=== PATIENT | female | born 1935 | race Caucasian/White ===

== ENCOUNTER 2019-12-11 10:53 | Observation (INO) ==
[2019-12-11 11:34] LABS: Hematocrit 35.1 % (35.3-44.9); Hemoglobin 10.2 g/dL (11.5-15.4); Mean Corpuscular HGB Conc 29.1 g/dL (31.6-35.5); Mean Corpuscular Hemoglobin 23.1 pg (28.0-33.3); Mean Corpuscular Volume 79.4 fL (83.0-100.0); Mean Platelet Volume 10.8 fL (9.4-12.4); Platelet Count 143 K/mcL (140-400); Red Blood Count 4.42 M/mcL (3.82-4.97); Red Cell Distribution Width 19.9 % (11.5-14.5); White Blood Count 5.8 K/mcL (4.3-11.1)
[2019-12-11 11:40] LABS: INR 1.9; Prothrombin Time 21.8 Seconds (9.4-12.1)
[2019-12-11 11:42] LABS: Activated Partial Thrombo Time 38.1 Seconds (26.0-36.0)
[2019-12-11 12:01] LABS: Troponin I < 0.03 ng/mL (< 0.04)
[2019-12-11 12:04] LABS: Bilirubin,Urine Negative (Negative); Blood,Urine Moderate (Negative); Clarity,Urine Clear (Clear); Color,Urine Yellow (Yellow); Glucose,Urine (UA) Normal (Normal); Ketones,Urine Negative (Negative); Leukocyte Esterase,Urine Small (Negative); Nitrite,Urine Negative (Negative); Protein,Urine Negative (Neg-Trace); Specific Gravity,Urine 1.022 (1.010-1.025); Urobilinogen,Urine Normal (Normal)
[2019-12-11 12:04] LABS: BUN/Creatinine Ratio 25 (6-26); Blood Urea Nitrogen 22 mg/dL (8-23); Carbon Dioxide 24 mEq/L (23-29); Chloride 106 mEq/L (98-107); Glucose 124 mg/dL (70-105); Osmolality,Calculated 293 (280-300); Potassium 4.3 mEq/L (3.5-5.1); Sodium 139 mEq/L (136-145); eGFR For African Americans > 60 (> 60); eGFR For Non-African Americans > 60 (> 60)
[2019-12-11 12:07] LABS: Bacteria,Urine None Seen per hpf (None-Few); Hyaline Casts,Urine None Seen per lpf (None-Few); Squamous Epithelial Cell,Urine Many per lpf (None-Few); WBC,Urine 0-3 per hpf (0-3)
[2019-12-11] MEDS ORDERED: Naloxone 0.4 MG/ML INJ IVP PRN (13:47)
[2019-12-11] MEDS ORDERED: Acetaminophen 325 MG TABLET PO PRN (13:47)
[2019-12-11] MEDS ORDERED: Isovue-370 500 ML BOTTLE IVP ONE (14:51)
[2019-12-11] MEDS ORDERED: *HR* Dextrose 50 % in Water (Syg) 50 ML SYRINGE IVP PRN (18:03)
[2019-12-11] MEDS ORDERED: Dextrose Gel 15 GM/37.5 ML TUBE PO PRN ×2 (18:03)
[2019-12-11] MEDS ORDERED: D5% in Water 1,000 ML IVC PRN (18:03)
[2019-12-11] MEDS ORDERED: Perflutren Lipid Microsphere 1.3 ML in 0.9 % Sodium Chloride 8.7 ML IVP ONE (19:14)
[2019-12-11] MEDS: Apixaban 5 MG TABLET PO SCH (20:17)
[2019-12-11] MEDS: Nystatin POWDER 30 GM BOTTLE TP SCH (20:22)
[2019-12-11] MEDS ORDERED: Insulin LISPRO 300 UNITS/3 ML VIAL SQ SCH (21:00)
[2019-12-11] MEDS ORDERED: traZODone 50 MG TABLET PO SCH (21:00)
[2019-12-12 01:50] LABS: Hemoglobin 8.8 g/dL (11.5-15.4)
[2019-12-12 01:51] LABS: Hematocrit 31.1 % (35.3-44.9); Mean Corpuscular HGB Conc 28.3 g/dL (31.6-35.5); Mean Corpuscular Hemoglobin 22.5 pg (28.0-33.3); Mean Corpuscular Volume 79.5 fL (83.0-100.0); Mean Platelet Volume 11.4 fL (9.4-12.4); Red Blood Count 3.91 M/mcL (3.82-4.97); White Blood Count 4.7 K/mcL (4.3-11.1)
[2019-12-12 02:20] LABS: BUN/Creatinine Ratio 25 (6-26); Blood Urea Nitrogen 21 mg/dL (8-23); Calcium 9.4 mg/dL (8.6-10.3); Carbon Dioxide 25 mEq/L (23-29); Chloride 109 mEq/L (98-107); Chol/HDL Ratio 2.4 (0-4.9); Cholesterol 83 mg/dL (< 200); Glucose 98 mg/dL (70-105); HDL Cholesterol 34 mg/dL (40-59); LDL Cholesterol,Calculated 39 mg/dL (0-99); Magnesium 1.4 mg/dL (1.6-2.6); Osmolality,Calculated 297 (280-300); Potassium 4.1 mEq/L (3.5-5.1); Sodium 142 mEq/L (136-145); Triglycerides 50 mg/dL (< 150); eGFR For African Americans > 60 (> 60); eGFR For Non-African Americans > 60 (> 60)
[2019-12-12 07:51] LABS: Estimated Average Glucose 146 mg/dl
[2019-12-12] MEDS: Insulin LISPRO 300 UNITS/3 ML VIAL SQ SCH ×2 (07:53→10:52)
[2019-12-12] MEDS: Apixaban 5 MG TABLET PO SCH (08:01)
[2019-12-12] MEDS: Nystatin POWDER 30 GM BOTTLE TP SCH (08:10)
[2019-12-12] MEDS ORDERED: DilTIAZem CD (24hr) 240 MG CAP.ER.24H PO SCH (09:00)
[2019-12-12] MEDS ORDERED: hydrOXYzine pamoate 25 MG CAPSULE PO SCH (09:00)
[2019-12-12] MEDS ORDERED: DilTIAZem CD (24hr) 180 MG CAP.ER.24H PO SCH (09:00)
[2019-12-12] MEDS ORDERED: Aspirin Enteric Coated 81 MG Tablet PO SCH ×2 (09:00)
[2019-12-12 10:52] VITALS: BP 108/65
== END 2019-12-12 13:03 | disposition home health service (06) ==
LOC: 3BNU 10:53 → EMEROOARM 10:53 → 3BNU 13:34 → SUATTDRO 13:47
PROVIDERS: ADMIT Internal Medicine; ATTEND Internal Medicine